=== PATIENT | male | born 1990 | race Caucasian/White ===

== ENCOUNTER 2021-05-24 14:57 | Emergency (ER) | payer MEDICAID, OTHER ==
[~2021-05-24] VITALS: Ht 177.8 cm; Wt 106.8 kg
[2021-05-24 15:01] VITALS: BP 128/64
[2021-05-24] MEDS ORDERED: LORazepam 2 MG TABLET PO ONE (15:15)
[2021-05-24] MEDS ORDERED: PERTUSS(ACELL),DIPH,TET VAC/PF 0.5 ML SYRINGE IM. ONE (15:15)
[2021-05-24] MEDS ORDERED: LIDOCAINE 1% 10 ML VIAL PERC ONE (15:30)
[2021-05-24] MEDS ORDERED: BUPIVACAINE HCL/PF 0.5% 10 ML VIAL PERC ONE (15:30)
[2021-05-24] MEDS ORDERED: BACITRACIN 0.9 GM PACKET OINTMENT TP ONE (17:15)
== END 2021-05-24 17:56 | disposition home or self-care (01) ==
LOC: EMS 14:57
DX: S62.635B Displaced fracture of distal phalanx of left ring finger, initial encounter for open fracture (principal); W45.8XXA Other foreign body or object entering through skin, initial encounter; Y93.89 Activity, other specified; Y92.098 Other place in other non-institutional residence as the place of occurrence of the external cause; Y99.8 Other external cause status
CPT/HCPCS: 29130; 73140; 90471; 90715; 96372; 99284; J0690; J3490 ×2

== ENCOUNTER 2021-06-08 10:57 | Emergency (ER) | payer OTHER ==
[~2021-06-08] VITALS: Ht 180.3 cm; Wt 105.9 kg
[2021-06-08 10:58] VITALS: BP 136/94
[2021-06-08] MEDS ORDERED: BACITRACIN 0.9 GM PACKET OINTMENT TP ONE (12:53)
== END 2021-06-08 13:07 | disposition home or self-care (01) ==
LOC: EMS 11:01
DX: S62.635B Displaced fracture of distal phalanx of left ring finger, initial encounter for open fracture (principal); Z48.00 Encounter for change or removal of nonsurgical wound dressing; X58.XXXA Exposure to other specified factors, initial encounter; Y93.89 Activity, other specified; Y92.89 Other specified places as the place of occurrence of the external cause; Y99.8 Other external cause status
CPT/HCPCS: 99283